=== PATIENT | male | born 1990 | race Two or more races ===

== ENCOUNTER 2017-08-07 14:46 | Emergency (ER) | payer OTHER ==
--- NOTE | 2017-08-07 15:16 | ER Document Report ---
HPI - HPI Patient complains to provider of: finger pain Onset: Other - wednesday Quality of pain: Achy, Throbbing Pain Level: 4 Context: Rush used for history and physical exam: 26-year-old male got a cut on the dorsal aspect of his left index finger at the nail bed on Wednesday. By it was swollen and tender. No fever. Associated Symptoms: None Exacerbated by: Movement Relieved by: Denies Similar symptoms previously: No Recently seen / treated by doctor: No - ROS ROS below otherwise negative: Yes Systems Reviewed and Negative: Yes All other systems reviewed and negative Past Medical History - General Information source: Patient - Social History Smoking Status: Never Smoker Frequency of alcohol use: None Drug Abuse: None Lives with: Spouse/Significant other Family History: Reviewed & Not Pertinent - Medical History Medical History: Negative Surgical Hx: Negative Vertical Provider Document - CONSTITUTIONAL Agree With Documented VS: Yes Exam Limitations: No Limitations - INFECTION CONTROL TRAVEL OUTSIDE OF THE [place] IN LAST 30 DAYS: No - HEENT HEENT: Normocephalic - NECK Neck: Supple - MUSCULOSKELETAL/EXTREMETIES Musculoskeletal/Extremeties: MAEW, FROM, Tender, Edema Notes: Right index finger with paronychia at the nailbed, no felon - NEURO Level of Consciousness: Awake Motor/Sensory: No Motor Deficit, No Sensory Deficit - DERM Integumentary: Warm, Dry Course - Re-evaluation Re-evalutation: 08/07/17 16:37 Rush was used for the history, physical exam, and discharge instructions. - Vital Signs Vital signs: Temp Pulse Resp BP Pulse Ox 98.3 F 77 18 126/96 H 98 08/07/17 14:56 08/07/17 14:56 08/07/17 14:56 08/07/17 14:56 08/07/17 14:56 Procedures - Incision and Drainage Left Finger 2nd digit Time completed: 16:39 Anesthetic type: Other - LET mL's of anesthetic: 2 I&D procedure: Betadine prep applied Incision Method: Incision made by scalpel - to nailbed to let the pus out Discharge - Discharge Clinical Impression: paronychia I and D Condition: Good Disposition: HOME, SELF-CARE Instructions: Acetaminophen, Cephalexin ([facility]), Elevation & Warmth ([facility]), Use of [id number]-Lgrmegn Ibuprofen ([facility]) Additional Instructions: Soak the finger in warm soapy water twice a day and replaced a dry dressing Elevate above your heart to decrease the pain Tylenol or Motrin for pain Return for increased swelling or pain. Finish antibiotics Prescriptions: Cephalexin Monohydrate [Keflex 500 mg Capsule] 500 mg PO QID #28 capsule
[2017-08-07] MEDS ORDERED: IBUPROFEN 800 MG TABLET PO ONE (15:43)
[2017-08-07] MEDS ORDERED: ACETAMINOPHEN 325 MG TABLET PO ONE (15:43)
[2017-08-07] MEDS ORDERED: LIDOCAINE 4%/TETRACAINE 0.5%/EPI 0.18% 5 ML TOPICAL SOLN TOP ONE (15:43)
[2017-08-07] MEDS ORDERED: CEPHALEXIN 500 MG CAPSULE PO ONE (15:43)
[2017-08-07] MEDS ORDERED: ONDANSETRON 4 MG TAB.RAPDIS PO ONE (15:43)
[2017-08-07 16:58] VITALS: BP 126/74
== END 2017-08-07 16:58 | disposition home or self-care (01) ==
LOC: EDBD → ER 14:46
DX: S61.311A Laceration without foreign body of left index finger with damage to nail, initial encounter (principal); L03.012 Cellulitis of left finger; W26.0XXA Contact with knife, initial encounter
CPT/HCPCS: 99283; 10060; S0119; J3490

== ENCOUNTER 2017-10-17 11:56 | Emergency (ER) | payer SELFPAY ==
[2017-10-17] MEDS ORDERED: VANCOMYCIN HCL INJ 1000 MG VIAL IV ONE (12:20)
--- NOTE | 2017-10-17 12:23 | ER Document Report ---
ED Medical Screen (RME) - General Chief Complaint: Knee Injury Stated Complaint: KNEE PAIN Time Seen by Provider: 10/17/17 12:18 Mode of Arrival: Wheelchair Information source: Patient Notes: This is a 27-year-old man or speaking man with no medical problems who presents to the emergency room with fever and chills for 2 days along with right knee redness and discomfort. The patient states he had a pimple just below the knee which he popped 2 days ago. Since that time, he feels a lot of pressure when he stands on that leg. He denies any cough, shortness of breath, abdominal pain. He denies any dysuria. On exam in the ER, he is afebrile and appears well. He does have erythema and warmth just below the patella and there is some firmness suggestive of possible abscess. He does not appear to have any significant pain with axial compression or with flexion and extension. His tetanus is up-to-date I have greeted and performed a rapid initial assessment of this patient. A comprehensive ED assessment and evaluation of the patient, analysis of test results and completion of medical decision making process we will be contacted by additional ED providers. TRAVEL OUTSIDE OF THE [place] IN LAST 30 DAYS: No - Related Data Allergies/Adverse Reactions: No Known Allergies Allergy (Verified 10/17/17 11:57) Past Medical History - Social History Frequency of alcohol use: None Drug Abuse: None Renal/ Medical History: Denies: Hx Peritoneal Dialysis Physical Exam - Vital signs Vitals: Temp Pulse Resp BP Pulse Ox 98.6 F 103 H 16 123/79 100 10/17/17 12:03 10/17/17 12:03 10/17/17 12:03 10/17/17 12:03 10/17/17 12:03 Course - Vital Signs Vital signs: Temp Pulse Resp BP Pulse Ox 98.6 F 103 H 16 123/79 100 10/17/17 12:03 10/17/17 12:03 10/17/17 12:03 10/17/17 12:03 10/17/17 12:03
[2017-10-17] MEDS ORDERED: NORMAL SALINE 1000 ML 1,000 ML IV ONE (12:32)
[2017-10-17] MEDS ORDERED: ONDANSETRON 4 MG TAB.RAPDIS PO ONE (12:32)
[2017-10-17 12:38] LABS: ABSOLUTE BASOPHILS # (AUTO) 0.1 10^3/uL (0.0-0.2); ABSOLUTE EOSINOPHILS # (AUTO) 0.4 10^3/uL (0.0-0.6); ABSOLUTE MONOCYTES (AUTO) 1.3 10^3/uL (0.1-1.4); BASOPHILS % (AUTO) 0.5 % (0-2); EOSINOPHILS % (AUTO) 3.1 % (0-6); HEMATOCRIT 45.4 % (37.9-51.0); HEMOGLOBIN 15.7 g/dL (13.5-17.0); LYMPHOCYTES % (AUTO) 14.2 % (13-45); MEAN CORPUSCULAR HEMOGLOBIN 30.4 pg (27.0-33.4); MEAN CORPUSCULAR HGB CONC 34.7 g/dL (32.0-36.0); MEAN CORPUSCULAR VOLUME 88 fl (80-97); MONOCYTES % (AUTO) 9.3 % (3-13); PLATELET COUNT 227 10^3/uL (150-450); RED BLOOD COUNT 5.18 10^6/uL (4.35-5.55); SEGMENTED NEUTROPHILS % (AUTO) 72.9 % (42-78); TOTAL CELLS COUNTED % (AUTO) 100 %; WHITE BLOOD COUNT 13.7 10^3/uL (4.0-10.5)
[2017-10-17 12:55] LABS: ALANINE AMINOTRANSFERASE 43 U/L (21-72); ALBUMIN 4.3 g/dL (3.5-5.0); ALKALINE PHOSPHATASE 90 U/L (38-126); ANION GAP 13 (5-19); ASPARTATE AMINO TRANSFERASE 32 U/L (17-59); BILIRUBIN,DIRECT 0.3 mg/dL (0.0-0.4); BILIRUBIN,TOTAL 1.1 mg/dL (0.2-1.3); BLOOD UREA NITROGEN 19 mg/dL (7-20); CALCIUM 10.2 mg/dL (8.4-10.2); CARBON DIOXIDE 28 mmol/L (22-30); CHLORIDE 103 mmol/L (98-107); GLUCOSE 87 mg/dL (75-110); POTASSIUM 4.5 mmol/L (3.6-5.0); SODIUM 143.7 mmol/L (137-145); TOTAL PROTEIN 7.6 g/dL (6.3-8.2)
--- NOTE | 2017-10-17 13:38 | RADIOLOGY REPORT (SQ) ---
EXAM DESCRIPTION: U/S EXTREMITY NONVASCULAR LTD COMPLETED DATE/TIME: 10/17/2017 1:11 pm REASON FOR STUDY: Cellulitis anterior lower knee, RO abscess COMPARISON: None. TECHNIQUE: Dynamic and static grayscale images acquired of the localized site of clinical concern an d recorded on PACS. Additional selected color Doppler and spectral images recorded. SITE OF CONCERN: Anterior knee soft tissues. LIMITATIONS: None. FINDINGS: SKIN AND SUBCUTANEOUS TISSUES: Superficial and deep subcutaneous generalized edema without well-defined focal fluid collection to suggest abscess. No visualized foreign body. DEEP SOFT TISSUES/MUSCLES: No masses. No fluid collections. No edema. VASCULAR: No increased or decreased vascularity. No occlusions. OTHER: No other significant finding. IMPRESSION: Superficial and deep subcutaneous edema consistent with cellulitis. No drainable absces s appreciated. TECHNICAL DOCUMENTATION: JOB ID: [id number] [employer]- All Rights Reserved Reading location - IP/workstation name: [email or web address]
[2017-10-17] MEDS ORDERED: CEFTRIAXONE INJ 1000 MG VIAL IV ONE (14:11)
[2017-10-17] MEDS ORDERED: PROMETHAZINE HCL 25 MG TABLET PO ONE (14:49)
[2017-10-17] MEDS ORDERED: OXYCODONE-ACETAMINOPHEN 5-325 MG TABLET PO ONE (14:49)
--- NOTE | 2017-10-17 15:58 | ER Document Report ---
ED Extremity Problem, Lower - General Chief Complaint: Knee Injury Stated Complaint: KNEE PAIN Time Seen by Provider: 10/17/17 12:18 Mode of Arrival: Wheelchair Notes: Patient is here for pain and swelling of the right lower leg, just below the knee anteriorly. He describes a small bump located in that region about 3-4 days ago. It has been progressively worsening in size and discomfort. They have been squeezing at this sore. It was originally white, but now has no color. Not aware of any fever. Patient is and speaks limited Macanese, but he is here with a female laboratory miller who speaks excellent Macanese and Macedonian. Patient has no other significant past medical history. Not on any regular prescription medications. TRAVEL OUTSIDE OF THE [place] IN LAST 30 DAYS: No - Related Data Allergies/Adverse Reactions: No Known Allergies Allergy (Verified 10/17/17 11:57) Past Medical History - General Information source: Patient - Social History Smoking Status: Never Smoker Frequency of alcohol use: None Drug Abuse: None Family History: Reviewed & Not Pertinent Patient has suicidal ideation: No Patient has homicidal ideation: No Review of Systems - Review of Systems Notes: REVIEW OF SYSTEMS: CONSTITUTIONAL : Denies fever. EENT: Denies eye, ear, nose or mouth or throat pain or other symptoms. CARDIOVASCULAR: Denies chest pain. RESPIRATORY: Denies cough, chest congestion, or shortness of breath. GASTROINTESTINAL: Denies abdominal pain or nausea, vomiting, or diarrhea. GENITOURINARY: Denies difficulty or painful urinating, urinary frequency, blood in urine. MUSCULOSKELETAL: Denies back or neck pain. Denies joint pain or swelling. SKIN: Denies rash. See HPI. NEUROLOGICAL: Denies LOC or altered mental status. Denies headache. Denies sensory loss or motor deficits. ALL OTHER SYSTEMS REVIEWED AND NEGATIVE. Physical Exam - Vital signs Vitals: Temp Pulse Resp BP Pulse Ox 98.6 F 107 H 16 123/79 100 10/17/17 12:01 10/17/17 12:01 10/17/17 12:01 10/17/17 12:01 10/17/17 12:01 Interpretation: Tachycardic - Minimal - Notes Notes: PHYSICAL EXAMINATION: GENERAL: Well-appearing, in no acute distress. Ambulates with a limp and with apparent pain. Afebrile. Very minimal increase in heart rate. HEAD: Atraumatic, normocephalic. NECK: Normal range of motion, supple. LUNGS: Breath sounds clear and equal bilaterally. HEART: Regular rate and rhythm without murmurs. ABDOMEN: Soft, nontender. No guarding or rebound. No masses. BACK: No tenderness throughout entire back. EXTREMITIES: Patient has swollen soft tissue around the upper anterior aspect of the right lower leg, just distal to the patella pretibial region. Central to this area painful swelling is a small denuded pustule which does not appear to be draining at this time. Palpation around this wound in the swollen area reveals generalized tenderness and quite firm to the touch. No fluctuance noted. The knee joint is easily bent into some degree of flexion as well as full extension without much discomfort. It is apparent that there is not any involvement in the joint itself and this is all in the soft tissues anterior to the knee joint. All other joints with normal range of motion without pain. NEUROLOGICAL: Normal speech, normal gait. Normal sensory, motor, and reflex exams. Awake, alert, and oriented x3. Cranial nerves normal. PSYCH: Normal mood, normal affect. SKIN: Warm, dry, no rashes. Course - Re-evaluation Re-evalutation: 10/17/17 22:13 Ultra Sound shows cellulitis, no abscess fluid collection. - Vital Signs Vital signs: Temp Pulse Resp BP Pulse Ox 97.6 F 97 16 121/78 98 10/17/17 16:28 10/17/17 16:28 10/17/17 16:28 10/17/17 16:28 10/17/17 16:28 - Laboratory Result Diagrams: 10/17/17 12:30 10/17/17 12:30 Laboratory results interpreted by me: 10/17/17 12:30 WBC 13.7 H Absolute Neutrophils 10.0 H Discharge - Discharge Clinical Impression: Cellulitis and abscess of right leg Condition: Stable Disposition: HOME, SELF-CARE Additional Instructions: CELLULITIS: You have an infection of your skin and underlying soft tissues called cellulitis. This is due to bacteria, which can enter through any break in the skin, or even through an irritated hair follicle. Untreated, cellulitis will usually worsen. Antibiotics are required. Usually, warm packs or warm soaks, and elevation of the infected area are recommended. You should start getting better within 24 to 36 hours. Most infections respond quickly to the right medication. Follow-up care is important, however, to check for abscess (boil) formation, unsuspected foreign body, or resistant infection. If you develop fever, chills, or if the area of infection is becoming rapidly more swollen or painful, call the doctor at once. MRSA CELLULITIS: You may have an infection of your skin and underlying soft tissues called cellulitis. This is due to bacteria, which can enter through any break in the skin, or even through an irritated hair follicle. Untreated, cellulitis will usually worsen and may form an abscess which requires draining. Although many bacterial organisms can cause cellulitis and abscess formations, the most likely bacteria is Methicillin-Resistant Staph Aureus, or MRSA for short. Antibiotics are required. Usually, warm packs or warm soaks, and elevation of the infected area are recommended. You should start getting better within 24 to 36 hours. Most infections respond quickly to the right medication. Follow-up care is important, however, to check for abscess (boil) formation, unsuspected foreign body, or resistant infection. If you develop fever, chills, or if the area of infection is becoming rapidly more swollen or painful, call the doctor at once. ANTIBIOTIC THERAPY: You have been given an antibiotic prescription. It's important that you take all the medication, unless instructed otherwise by your physician. Failure to complete the entire course can result in relapse of your condition. Common side effects of antibiotics include nausea, intestinal cramping, or diarrhea. Women may develop vaginal yeast infections, and babies can get yeast (thrush) in the mouth following the use of antibiotics. Contact your physician if you develop significant side effects from this medication. Allergy to this antibiotic can result in hives, wheezing, faintness, or itching. If symptoms of allergy occur, stop the medication and call the doctor. Cephalexin The antibiotic you've been prescribed is a member of the cephalosporin class. This type of antibiotic covers a wide variety of infections, including those of the skin, lungs, and urinary tract. It's useful for staph infections. This antibiotic is slightly similar to the penicillin family. In rare cases , a person who is allergic to penicillin will also be allergic to this medication. If you have had a severe allergic reaction to penicillin, and have not taken this antibiotic since that time, notify your doctor. Antibiotics which cover many germs ("broad spectrum" antibiotics) are more likely to cause diarrhea or "yeast" infections. Women prone to vaginal yeast problems may suffer an attack after taking this antibiotic. In infants, oral thrush (white spots "stuck" on the cheek) or yeast diaper rash may result. See your doctor if these problems occur. Call at once if you develop itching, hives , shortness of breath, or lightheadedness. TRIMETHOPRIM-SULFA: You have been given a prescription for trimethoprim-sulfa (TMS, Septra, Bactrim). This is a combination antibiotic of the sulfa class, often used for urinary tract infections, middle ear infections, bronchitis, shigella intestinal infection, and Pneumocystis pneumonia. TMS is usually well-tolerated. Occasional side effects include nausea and decreased appetite. Septra is not recommended for infants less than two months of age. Do not take this medication if you have experienced severe side effects or allergy to sulfa medicine. You should stop this medicine at once and contact your physician if you develop any rash, joint pain, shortness of breath, bruising, or jaundice ( yellow color in the skin), or if you develop any other new or unusual symptoms. ORAL NARCOTIC MEDICATION: You have been given a prescription for pain control. This medication is a narcotic. It's best taken with food, as nausea can result if taken on an empty stomach. Don't operate machinery or drive within six hours of taking this medication. Do not combine this medicine with alcohol, or with any medication which can cause sedation (such as cold tablets or sleeping pills) unless you get permission from the physician. Narcotics tend to cause constipation. If possible, drink plenty of fluids and eat a diet high in fiber and fruits. FOLLOW-UP CARE: If you have been referred to a physician for follow-up care, call the physician s office for an appointment as you were instructed or within the next two days. If you experience worsening or a significant change in your symptoms, notify the physician immediately or return to the Emergency Department at any time for re-evaluation. Avoid being exposed to sunlight because some medications will cause a rash when exposed to the sun. Wear long sleeve shirts and long pants while taking her medications. If your leg is worse tomorrow, return for us to reevaluate. Prescriptions: Cephalexin Monohydrate [Keflex 500 mg Capsule] 500 mg PO QID 7 Days capsule Oxycodone HCl/Acetaminophen [Percocet 5-325 mg Tablet] 1 - 2 tab PO Q4H PRN #15 tablet PRN Reason: Sulfamethoxazole/Trimethoprim [Bactrim Ds Tablet] 1 each PO BID #15 tablet Forms: Return to Work
[2017-10-17 16:28] VITALS: BP 121/78
== END 2017-10-17 16:28 | disposition home or self-care (01) ==
LOC: ER 11:56
DX: L03.115 Cellulitis of right lower limb (principal); L02.415 Cutaneous abscess of right lower limb
CPT/HCPCS: 99284; 96365; 96366; 96367; 36415; 87040; 85025; 80053; 83605; 76882; S0119; J0696; J7030; J3370

== ENCOUNTER 2017-10-19 11:14 | Inpatient (IN) | payer SELFPAY ==
[2017-10-19] MEDS ORDERED: NORMAL SALINE 1000 ML 2,000 ML IV ONE (12:08)
[2017-10-19] MEDS ORDERED: HYDROMORPHONE HCL INJ/PF 2 MG/ML AMPULE IV ONE (12:09)
--- NOTE | 2017-10-19 12:10 | ER Document Report ---
ED Extremity Problem, Lower - General Chief Complaint: Leg Pain Stated Complaint: RIGHT KNEE PAIN Time Seen by Provider: 10/19/17 11:44 Mode of Arrival: Ambulatory Information source: Patient Notes: Patient is a 27-year-old male who does not speak Gibraltarian who presents to the ER today for worsening right knee redness, pain, swelling. Patient was seen here 2 days ago and diagnosed with cellulitis directly inferior to the right knee. Patient was placed on Bactrim and Keflex, states that he has been taking that but that the redness, swelling and pain worsened. Patient states that it is harder to bend the right knee because of the pain. He admits to fevers at home. He has not taken his temperature. TRAVEL OUTSIDE OF THE [place] IN LAST 30 DAYS: No - Related Data Allergies/Adverse Reactions: No Known Allergies Allergy (Verified 10/17/17 11:57) Past Medical History - General Information source: Patient - Social History Smoking Status: Never Smoker Family History: Reviewed & Not Pertinent Renal/ Medical History: Denies: Hx Peritoneal Dialysis Review of Systems - Review of Systems Constitutional: See HPI EENT: No symptoms reported Cardiovascular: No symptoms reported Respiratory: No symptoms reported Gastrointestinal: No symptoms reported Genitourinary: No symptoms reported Male Genitourinary: No symptoms reported Musculoskeletal: See HPI Skin: See HPI Hematologic/Lymphatic: No symptoms reported Neurological/Psychological: No symptoms reported Physical Exam - Vital signs Vitals: Temp Pulse BP Pulse Ox 99.3 F 95 123/63 98 10/19/17 12:31 10/19/17 12:31 10/19/17 12:31 10/19/17 12:31 - Notes Notes: PHYSICAL EXAMINATION: GENERAL: Well-appearing and in no acute distress. HEAD: Atraumatic, normocephalic. EYES: Pupils equal round and reactive to light, extraocular movements intact, sclera anicteric, conjunctiva are normal. NECK: Normal range of motion, supple without lymphadenopathy LUNGS: CTAB and equal. No wheezes rales or rhonchi. HEART: Regular rate and rhythm without murmurs EXTREMITIES: Limited active range of motion of the right knee with bending, good passive range of motion of the right knee but with pain, good distal pulses , no pitting edema. No cyanosis. NEUROLOGICAL: Cranial nerves grossly intact. Normal sensory/motor exams. PSYCH: Normal mood, normal affect. SKIN: Warm, Dry, normal turgor, large amount of erythema to the anterior, medial and lateral surface of the right lower extremity directly inferior to the patella, hot, tender, area of induration overlying the center with a pustule , no active drainage Course - Re-evaluation Re-evalutation: 10/19/17 13:33 Patient has a white blood cell count of 14.2, is afebrile today, lactic acid is normal, blood cultures pending, however blood cultures from 2 days ago showed no growth. Dr. Banuelos, orthopedic on-call knows about patient and states that he will be here, but it may take a few hours as he is in the operating room at this time. 10/19/17 16:24 inferior to right patella had induration that I drained, copious amount of pus was released, clindamycin started, Dr. Banuelos to consult, Dr. Agosto accepts admission at this time for IV abx. wound culture pending. 10/19/17 18:06 Dr. Banuelos, orthopedic surgeon just evaluated patient along with myself. Agrees with admission and IV antibiotic choice. - Vital Signs Vital signs: Temp Pulse Resp BP Pulse Ox 99.3 F 97 17 123/63 98 10/19/17 12:31 10/19/17 17:22 10/19/17 17:22 10/19/17 12:31 10/19/17 17:22 - Laboratory Result Diagrams: 10/19/17 12:16 10/19/17 12:16 Laboratory results interpreted by me: 10/19/17 10/19/17 10/19/17 12:15 12:16 12:16 WBC 14.2 H Absolute Neutrophils 9.6 H ESR Alkaline Phosphatase 142 H C-Reactive Protein Urine Blood LARGE H Urine Urobilinogen 4.0 H 10/19/17 10/19/17 12:16 12:16 WBC Absolute Neutrophils ESR 64 H Alkaline Phosphatase C-Reactive Protein 218.4 H Urine Blood Urine Urobilinogen Procedures - Incision and Drainage Right Lower Leg Time completed: 15:00 Type: Simple Anesthetic type: 1% Lidocaine mL's of anesthetic: 7 Blade size: 11 I&D procedure: Betadine prep applied Incision Method: Incision made by scalpel Amount/type of drainage: copious pus Discharge - Discharge Clinical Impression: Cellulitis and abscess of right leg Condition: Stable Disposition: ADMITTED INPATIENT Admitting Provider: Julio agosto Unit Admitted: Medical Floor
[2017-10-19] MEDS ORDERED: FENTANYL CITRATE INJ/PF 100 MCG/2 ML AMPUL IV ONE ×2 (12:27→15:10)
[2017-10-19 12:43] LABS: ABSOLUTE EOSINOPHILS # (AUTO) 0.4 10^3/uL (0.0-0.6); ABSOLUTE MONOCYTES (AUTO) 1.2 10^3/uL (0.1-1.4); ABSOLUTE NEUT (AUTO) 9.6 10^3/uL (1.7-8.2); BASOPHILS % (AUTO) 0.3 % (0-2); EOSINOPHILS % (AUTO) 2.7 % (0-6); HEMATOCRIT 41.3 % (37.9-51.0); HEMOGLOBIN 14.3 g/dL (13.5-17.0); MEAN CORPUSCULAR HGB CONC 34.6 g/dL (32.0-36.0); MEAN CORPUSCULAR VOLUME 87 fl (80-97); MONOCYTES % (AUTO) 8.7 % (3-13); PLATELET COUNT 287 10^3/uL (150-450); RED BLOOD COUNT 4.76 10^6/uL (4.35-5.55); RED CELL DISTRIBUTION WIDTH 13.2 % (11.5-14.0); SEGMENTED NEUTROPHILS % (AUTO) 67.3 % (42-78); TOTAL CELLS COUNTED % (AUTO) 100 %; WHITE BLOOD COUNT 14.2 10^3/uL (4.0-10.5)
[2017-10-19 12:47] LABS: APPEARANCE,URINE CLEAR; BILIRUBIN,URINE NEGATIVE (NEGATIVE); COLOR,URINE YELLOW; GLUCOSE, URINE NEGATIVE (NEGATIVE); KETONES,URINE NEGATIVE (NEGATIVE); LEUKOCYTE ESTERASE,URINE NEGATIVE (NEGATIVE); NITRITE,URINE NEGATIVE (NEGATIVE); PROTEIN,URINE NEGATIVE (NEGATIVE); URINE SPECIFIC GRAVITY 1.006
[2017-10-19 13:06] LABS: ALANINE AMINOTRANSFERASE 51 U/L (21-72); ALBUMIN 4.2 g/dL (3.5-5.0); ALKALINE PHOSPHATASE 142 U/L (38-126); ANION GAP 13 (5-19); ASPARTATE AMINO TRANSFERASE 45 U/L (17-59); BILIRUBIN,DIRECT 0.4 mg/dL (0.0-0.4); BILIRUBIN,TOTAL 0.8 mg/dL (0.2-1.3); BLOOD UREA NITROGEN 12 mg/dL (7-20); CALCIUM 9.8 mg/dL (8.4-10.2); CARBON DIOXIDE 24 mmol/L (22-30); CHLORIDE 103 mmol/L (98-107); GLUCOSE 81 mg/dL (75-110); POTASSIUM 4.3 mmol/L (3.6-5.0); SODIUM 140.4 mmol/L (137-145); TOTAL PROTEIN 7.4 g/dL (6.3-8.2)
--- NOTE | 2017-10-19 13:15 | RADIOLOGY REPORT (SQ) ---
EXAM DESCRIPTION: CT RT LOWER EXTREMITY WITH COMPLETED DATE/TIME: 10/19/2017 12:56 pm REASON FOR STUDY: septic knee COMPARISON: None. TECHNIQUE: CT scan of the right knee performed with IV contrast. Patient was injected with 65 mL of IV Isovue 370. Patient's creatinine today is 0.92. Images reviewed with soft tissue and bone gertrudis maldonado. Reconstructed coronal and sagittal MPR images reviewed. All images stored on PACS. All CT scanners at this facility use dose modulation, iterative reconstruction, and/or weight based d osing when appropriate to reduce radiation dose to as low as reasonably achievable (ALARA). [facility]: Dose Right [facility]: CareDose [facility]: Dose Right [facility]: Teradose 4D [facility]: LabNow RADIATION DOSE: CT Rad equipment meets quality standard of care and radiation dose reduction techniq ues were employed. CTDIvol: 4.1 mGy. DLP: 183 mGy-cm. mGy. LIMITATIONS: None. FINDINGS: Normal bone density. No fracture or malalignment. Joint spaces are well maintained. There is superficial cellulitis from the mid thigh to the mid calf lateral aspect, with skin thickeni ng and subcutaneous edema. A 3.4 x 1.3 x 2 cm fluid collection is present in the prepatellar bursa, best shown on coronal image 47, sagittal image 30, and axial images 92-104. There is trace fluid deep to the medial aspect of the patellar tendon, along Hoffa's fat pad. This fluid collection measures 2 x 1 cm in size, best shown on sagittal image 36 and axial image 93. There is trace fluid in the suprapatellar recess. No soft tissue gas. No radiopaque foreign body. Normal contrast enhancement of the popliteal artery and vein. IMPRESSION: Superficial cellulitis throughout the lateral aspect of the left knee soft tissues. Fluid in the prepatellar bursa with surrounding inflammatory change in the adjacent fat Trace fluid in the Hoffa's fat pad region Trace suprapatellar knee joint space fluid. TECHNICAL DOCUMENTATION: JOB ID: [id number] Quality ID # [id number]: Final reports with documentation of one or more dose reduction techniques (e.g., Au tomated exposure control, adjustment of the mA and/or kV according to patient size, use of iterative reconstruction technique) 2010 [employer]- All Rights Reserved Reading location - IP/workstation name: [email or web address]
[2017-10-19] MEDS ORDERED: LIDOCAINE 1% INJ-PF (10 MG/ML) 30 ML SDV INJ ONE (13:52)
[2017-10-19] MEDS ORDERED: IPRATROPIUM/ALBUTEROL 0.5-2.5 MG/3 ML AMPUL NEB PRN (16:28)
[2017-10-19] MEDS ORDERED: ONDANSETRON 4 MG TAB.RAPDIS PO PRN (16:28)
[2017-10-19] MEDS ORDERED: ONDANSETRON HCL INJ/PF 4 MG/2 ML SDV IV PRN (16:28)
--- NOTE | 2017-10-19 17:25 | PDOC H&P ---
History of Present Illness Admission Date/PCP: 10/19/17 The patient does not have a primary care physician. Patient complains of: L leg cellulitis worsening despite oral outpatient antibiotics History of Present Illness: RICKI DURAN is a 27 year old Belarusian-speaking gentleman with no significant past medical history who presented to the Emergency department 2 days ago with cellulitis overlying his right knee. He was discharged with some oxycodone Keflex and Bactrim. He reports that it started with a small pustule that he squeezed and then the infection spread. He admits to some fevers nausea. He has been constipated for the past 3 days. He returned back to the emergency room due to worsening of pain swelling and redness over his right knee with difficulty ambulating. Incision and drainage of pus was done in the emergency room. CAT scan of the lower extremity shows superficial cellulitis of the lateral aspect of the knee and the soft tissues with fluid in the prepatellar bursa with surrounding inflammatory change in the adjacent fat. Trace suprapatellar knee joint space fluid was also seen. A consultation was requested for orthopedics. Past Medical History Medical History: None Social History Information Source: Patient Smoking Status: Never Smoker Frequency of Alcohol Use: None Hx Recreational Drug Use: No - Advance Directive Resuscitation Status: Full Code Family History Family History: None Parental Family History Reviewed: Yes Children Family History Reviewed: Yes Sibling(s) Family History Reviewed.: Yes Medication/Allergy Home Medications: Cephalexin Monohydrate [Keflex 500 mg Capsule] 500 mg PO QID 7 Days capsule 02/24 Oxycodone HCl/Acetaminophen [Percocet 5-325 mg Tablet] 1 - 2 tab PO Q4H PRN #15 tablet 10/17/17 Sulfamethoxazole/Trimethoprim [Bactrim Ds Tablet] 1 each PO BID #15 tablet 10/17 Allergies/Adverse Reactions: No Known Allergies Allergy (Verified 10/17/17 11:57) Review of Systems Constitutional: PRESENT: fever(s) Ears: ABSENT: hearing changes Nose, Mouth, and Throat: ABSENT: mouth pain Cardiovascular: ABSENT: chest pain, edema Gastrointestinal: PRESENT: constipation. ABSENT: abdominal pain, heartburn Genitourinary: ABSENT: dysuria Musculoskeletal: PRESENT: joint swelling Integumentary: PRESENT: rash Neurological: ABSENT: syncope Psychiatric: ABSENT: hallucinations Endocrine: ABSENT: heat intolerance Hematologic/Lymphatic: ABSENT: easy bleeding Allergic/Immunologic: ABSENT: seasonal rhinorrhea Physical Exam Vital Signs: Temp Pulse Resp BP Pulse Ox 99.3 F 95 123/63 98 10/19/17 12:31 10/19/17 12:31 10/19/17 12:31 10/19/17 12:31 General appearance: PRESENT: no acute distress, well-developed, well-nourished Head exam: PRESENT: normocephalic Eye exam: PRESENT: PERRLA. ABSENT: scleral icterus Ear exam: PRESENT: normal external ear exam Mouth exam: PRESENT: moist Respiratory exam: PRESENT: symmetrical, unlabored. ABSENT: wheezes Cardiovascular exam: PRESENT: RRR GI/Abdominal exam: PRESENT: normal bowel sounds, soft. ABSENT: tenderness Rectal exam: PRESENT: deferred Gentrourinary exam: ABSENT: indwelling catheter Extremities exam: PRESENT: other - erythema over the R knee, with increased circumference of the R leg Musculoskeletal exam: PRESENT: other - as above Neurological exam: PRESENT: alert, awake, oriented to person, oriented to place , oriented to time, oriented to situation Psychiatric exam: PRESENT: appropriate affect Skin exam: PRESENT: other - as above Results Laboratory Results: 10/19/17 12:16 10/19/17 12:16 10/19/17 10/19/17 10/19/17 12:15 12:16 12:16 WBC 14.2 H RBC 4.76 Hgb 14.3 Hct 41.3 MCV 87 MCH 30.0 MCHC 34.6 RDW 13.2 Plt Count 287 Seg Neutrophils % 67.3 Lymphocytes % 21.0 Monocytes % 8.7 Eosinophils % 2.7 Basophils % 0.3 Absolute Neutrophils 9.6 H Absolute Lymphocytes 3.0 Absolute Monocytes 1.2 Absolute Eosinophils 0.4 Absolute Basophils 0.0 Sodium 140.4 Potassium 4.3 Chloride 103 Carbon Dioxide 24 Anion Gap 13 BUN 12 Creatinine 1.12 Est GFR ( Amer) > 60 Est GFR (Non-Af Amer) > 60 Glucose 81 Lactic Acid Calcium 9.8 Total Bilirubin 0.8 AST 45 ALT 51 Alkaline Phosphatase 142 H C-Reactive Protein Total Protein 7.4 Albumin 4.2 Urine Color YELLOW Urine Appearance CLEAR Urine pH 6.0 Ur Specific Grandy 1.006 Urine Protein NEGATIVE Urine Glucose (UA) NEGATIVE Urine Ketones NEGATIVE Urine Blood LARGE H Urine Nitrite NEGATIVE Ur Leukocyte Esterase NEGATIVE Urine WBC (Auto) 1 10/19/17 10/19/17 12:16 12:16 WBC RBC Hgb Hct MCV MCH MCHC RDW Plt Count Seg Neutrophils % Lymphocytes % Monocytes % Eosinophils % Basophils % Absolute Neutrophils Absolute Lymphocytes Absolute Monocytes Absolute Eosinophils Absolute Basophils Sodium Potassium Chloride Carbon Dioxide Anion Gap BUN Creatinine Est GFR ( Amer) Est GFR (Non-Af Amer) Glucose Lactic Acid 1.8 Calcium Total Bilirubin AST ALT Alkaline Phosphatase C-Reactive Protein 218.4 H Total Protein Albumin Urine Color Urine Appearance Urine pH Ur Specific Grandy Urine Protein Urine Glucose (UA) Urine Ketones Urine Blood Urine Nitrite Ur Leukocyte Esterase Urine WBC (Auto) Impressions: Lower Extremity CT 10/19/17 12:07 IMPRESSION: Superficial cellulitis throughout the lateral aspect of the left knee soft tissues. Fluid in the prepatellar bursa with surrounding inflammatory change in the adjacent fat Trace fluid in the Hoffa's fat pad region Trace suprapatellar knee joint space fluid. Assessment & Plan - Diagnosis (1) Cellulitis and abscess of right leg Is this a current diagnosis for this admission?: Yes Plan: He has been started on IV Clindamycin which we shall continue. Follow up on would cultures. Check venous dopplers to r/o DVT. Orthopedic consult requested to evaluate for possible R knee joint involvement (2) Constipation Qualifiers: Constipation type: unspecified constipation type Qualified Code(s): K59.00 - Constipation, unspecified Is this a current diagnosis for this admission?: Yes Plan: Laxatives - Time Time Spent: 50 to 70 Minutes - Inpatient Certification Medical Necessity: Failure to Improve With Outpatient Therapy, Need Close Monitoring Due to Risk of Patient Decompensation, Need for IV Antibiotics
[2017-10-19] MEDS ORDERED: ENOXAPARIN SODIUM INJ 40 MG/0.4 ML DISP.SYRIN SUBCUT ONE (17:30)
[2017-10-19] MEDS: CLINDAMYCIN 600 MG/D5W RTU 600 MG/50 ML RTUPB IV SCH (18:18)
[2017-10-19] MEDS: OXYCODONE-ACETAMINOPHEN 5-325 MG TABLET PO PRN (18:20)
[2017-10-19] MEDS: LACTOBACILLUS ACIDOPHILUS 250 MG TAB PO SCH (18:20)
[2017-10-19] MEDS ORDERED: BISACODYL 5 MG TABEC PO ONE (18:30)
--- NOTE | 2017-10-19 19:04 | PDOC CONSULTATION ---
History of Present Illness Admission Date/PCP: 10/19/17 16:46 Patient complains of: Right knee redness and swelling History of Present Illness: RICKI DURAN is a 27 year old male who presented to the emergency room 2 days ago with right knee pain and swelling. He was started on Bactrim and Keflex which he has been taking as recommended but states the pain has not improved. Initially started a few days ago with a small pustule which he popped since then the redness and swelling have worsened. His difficulty weightbearing or moving his right knee secondary to the pain. While in the emergency room patient underwent bedside irrigation and debridement since then his pain has notably improved and he has better range of motion. He denies fever chills or sweats. Does complain of some constipation today. Above history was obtained via foreign language interpreter Social History Smoking Status: Never Smoker Frequency of Alcohol Use: None Hx Recreational Drug Use: No - Advance Directive Resuscitation Status: Full Code Family History Family History: Reviewed & Not Pertinent Parental Family History Reviewed: No Children Family History Reviewed: No Sibling(s) Family History Reviewed.: No Medication/Allergy Home Medications: Cephalexin Monohydrate [Keflex 500 mg Capsule] 500 mg PO QID 7 Days capsule 02/24 Oxycodone HCl/Acetaminophen [Percocet 5-325 mg Tablet] 1 - 2 tab PO Q4H PRN #15 tablet 10/17/17 Sulfamethoxazole/Trimethoprim [Bactrim Ds Tablet] 1 each PO BID #15 tablet 10/17 Allergies/Adverse Reactions: No Known Allergies Allergy (Verified 10/17/17 11:57) Review of Systems Constitutional: ABSENT: chills, fever(s), headache(s), weight gain, weight loss Eyes: ABSENT: visual disturbances Ears: ABSENT: hearing changes Cardiovascular: ABSENT: chest pain, dyspnea on exertion, edema, orthropnea, palpitations Respiratory: ABSENT: cough, hemoptysis Gastrointestinal: PRESENT: constipation. ABSENT: abdominal pain, diarrhea, hematemesis, hematochezia, nausea, vomiting Genitourinary: ABSENT: dysuria, hematuria Musculoskeletal: PRESENT: as per HPI Integumentary: ABSENT: rash, wounds Neurological: ABSENT: abnormal gait, abnormal speech, confusion, dizziness, focal weakness, syncope Psychiatric: ABSENT: anxiety, depression, homidical ideation, suicidal ideation Endocrine: ABSENT: cold intolerance, heat intolerance, menstrual abnormalities, polydipsia, polyuria Hematologic/Lymphatic: ABSENT: easy bleeding, easy bruising, lymphadenopathy Physical Exam Vital Signs: Temp Pulse Resp BP Pulse Ox 99.3 F 97 17 123/63 98 10/19/17 12:31 10/19/17 17:22 10/19/17 17:22 10/19/17 12:31 10/19/17 17:22 Results Impressions: Lower Extremity CT 10/19/17 12:07 IMPRESSION: Superficial cellulitis throughout the lateral aspect of the left knee soft tissues. Fluid in the prepatellar bursa with surrounding inflammatory change in the adjacent fat Trace fluid in the Hoffa's fat pad region Trace suprapatellar knee joint space fluid. Status: Image reviewed by me - I have reviewed patient's radiographs and CT scan which demonstrated fluid collection within the prepatellar bursa consistent with prepatellar bursitis. No significant intra-articular effusion noted. Assessment & Plan - Diagnosis (1) Bursitis, prepatellar, right Is this a current diagnosis for this admission?: Yes Plan: On examination patient has findings of prepatellar bursitis. I have reviewed CT scan and radiographs which demonstrate the above finding. On examination there is no sign or symptoms to suggest septic arthritis however he does remain a possibility. She underwent successful bedside irrigation and debridement with packing I have recommended continuing IV antibiotics if patient's there is clinical improvement will likely avoid operative intervention however if his symptoms do not improve he may require formal irrigation debridement in the operating room. Would recommend packing removal on 10/20/17
[2017-10-20] MEDS: CLINDAMYCIN 600 MG/D5W RTU 600 MG/50 ML RTUPB IV SCH ×3 (06:17→22:32)
[2017-10-20] MEDS: OXYCODONE-ACETAMINOPHEN 5-325 MG TABLET PO PRN (06:18)
[2017-10-20 06:24] LABS: ABSOLUTE BASOPHILS # (AUTO) 0.1 10^3/uL (0.0-0.2); ABSOLUTE EOSINOPHILS # (AUTO) 0.4 10^3/uL (0.0-0.6); ABSOLUTE LYMPHOCYTES (AUTO) 1.9 10^3/uL (0.5-4.7); ABSOLUTE MONOCYTES (AUTO) 0.7 10^3/uL (0.1-1.4); BASOPHILS % (AUTO) 0.6 % (0-2); EOSINOPHILS % (AUTO) 4.4 % (0-6); HEMATOCRIT 38.3 % (37.9-51.0); HEMOGLOBIN 13.2 g/dL (13.5-17.0); LYMPHOCYTES % (AUTO) 20.9 % (13-45); MEAN CORPUSCULAR HEMOGLOBIN 30.2 pg (27.0-33.4); MEAN CORPUSCULAR HGB CONC 34.4 g/dL (32.0-36.0); MEAN CORPUSCULAR VOLUME 88 fl (80-97); MONOCYTES % (AUTO) 8.1 % (3-13); PLATELET COUNT 224 10^3/uL (150-450); RED BLOOD COUNT 4.36 10^6/uL (4.35-5.55); RED CELL DISTRIBUTION WIDTH 13.3 % (11.5-14.0); TOTAL CELLS COUNTED % (AUTO) 100 %; WHITE BLOOD COUNT 9.1 10^3/uL (4.0-10.5)
[2017-10-20 07:00] LABS: ALANINE AMINOTRANSFERASE 55 U/L (21-72); ALBUMIN 3.3 g/dL (3.5-5.0); ALKALINE PHOSPHATASE 107 U/L (38-126); ANION GAP 11 (5-19); ASPARTATE AMINO TRANSFERASE 38 U/L (17-59); BILIRUBIN,DIRECT 0.4 mg/dL (0.0-0.4); BILIRUBIN,TOTAL 0.6 mg/dL (0.2-1.3); BLOOD UREA NITROGEN 14 mg/dL (7-20); CALCIUM 9.4 mg/dL (8.4-10.2); CARBON DIOXIDE 27 mmol/L (22-30); CHLORIDE 106 mmol/L (98-107); GLUCOSE 91 mg/dL (75-110); PHOSPHORUS 3.2 mg/dL (2.5-4.5); POTASSIUM 4.6 mmol/L (3.6-5.0); SODIUM 143.7 mmol/L (137-145); TOTAL PROTEIN 6.3 g/dL (6.3-8.2)
--- NOTE | 2017-10-20 07:02 | PDOC PROGRESS REPORT ---
Subjective Progress Note for:: 10/20/17 Subjective:: Patient notes pain has improved after bedside irrigation by the emergency room. Denies fever or chills. Reason For Visit: L LEG CELLULITIS WORSENING DESPITE ORAL OUTPATIENT Physical Exam Vital Signs: Temp Pulse Resp BP Pulse Ox 98.7 F 77 18 108/62 100 10/20/17 05:11 10/20/17 05:11 10/20/17 05:11 10/20/17 05:11 10/20/17 05:11 Intake & Output 10/18/17 10/19/17 10/20/17 06:59 06:59 06:59 Intake Total 100 Output Total 450 Balance -350 Weight 76.3 kg Musculoskeletal exam: PRESENT: other - Right knee: Mild erythema anteriorly. No active drainage. No streaking erythema proximally or distally. Calf soft and compressible with mild swelling. No pain with passive range of motion. Intact plantar flexion/dorsiflexion. No sensory deficits. Results Laboratory Results: 10/20/17 05:34 10/20/17 05:34 WBC 9.1 RBC 4.36 Hgb 13.2 L Hct 38.3 MCV 88 MCH 30.2 MCHC 34.4 RDW 13.3 Plt Count 224 Seg Neutrophils % 66.0 Lymphocytes % 20.9 Monocytes % 8.1 Eosinophils % 4.4 Basophils % 0.6 Absolute Neutrophils 6.0 Absolute Lymphocytes 1.9 Absolute Monocytes 0.7 Absolute Eosinophils 0.4 Absolute Basophils 0.1 Impressions: Lower Extremity CT 10/19/17 12:07 IMPRESSION: Superficial cellulitis throughout the lateral aspect of the left knee soft tissues. Fluid in the prepatellar bursa with surrounding inflammatory change in the adjacent fat Trace fluid in the Hoffa's fat pad region Trace suprapatellar knee joint space fluid. Assessment & Plan - Diagnosis (1) Bursitis, prepatellar, right Is this a current diagnosis for this admission?: Yes Plan: On examination patient has findings of prepatellar bursitis. Patient underwent successful bedside irrigation and debridement with packing I have recommended continuing IV antibiotics if patient's there is clinical improvement will likely avoid operative intervention however if his symptoms do not improve he may require formal irrigation debridement in the operating room. Would recommend packing removal on 10/20/17
[2017-10-20] MEDS: ENOXAPARIN SODIUM INJ 40 MG/0.4 ML DISP.SYRIN SUBCUT SCH (10:54)
[2017-10-20] MEDS: DOCUSATE SODIUM 100 MG CAPSULE PO SCH (10:57)
--- NOTE | 2017-10-20 12:12 | PDOC PROGRESS REPORT ---
Subjective Progress Note for:: 10/20/17 Subjective:: 27-year-old Faroese-speaking gentleman who was admitted yesterday for failure of improvement of his right leg cellulitis with p.o. antibiotics. He underwent incision and drainage in the emergency room and was started on IV antibiotics. He also has prepatellar bursitis and was evaluated by orthopedic surgery. Reason For Visit: L LEG CELLULITIS WORSENING DESPITE ORAL OUTPATIENT Physical Exam Vital Signs: Temp Pulse Resp BP Pulse Ox 98.3 F 70 16 126/78 H 100 10/20/17 08:02 10/20/17 08:02 10/20/17 08:02 10/20/17 08:02 10/20/17 08:02 Intake & Output 10/19/17 10/20/17 10/21/17 06:59 06:59 06:59 Intake Total 150 Output Total 450 Balance -300 Weight 76.3 kg General appearance: PRESENT: no acute distress Head exam: PRESENT: normocephalic Eye exam: ABSENT: scleral icterus Ear exam: PRESENT: normal external ear exam Mouth exam: PRESENT: moist Respiratory exam: PRESENT: symmetrical, unlabored Cardiovascular exam: PRESENT: RRR GI/Abdominal exam: PRESENT: normal bowel sounds, soft. ABSENT: tenderness Rectal exam: PRESENT: deferred Gentrourinary exam: ABSENT: indwelling catheter Extremities exam: PRESENT: pedal edema, other - Erythema over the right knee improved.. ABSENT: calf tenderness Neurological exam: PRESENT: alert, awake, oriented to person, oriented to place , oriented to time, oriented to situation Psychiatric exam: PRESENT: appropriate affect Results Laboratory Results: 10/20/17 05:34 10/20/17 05:34 10/20/17 10/20/17 10/20/17 05:34 05:34 05:34 WBC 9.1 RBC 4.36 Hgb 13.2 L Hct 38.3 MCV 88 MCH 30.2 MCHC 34.4 RDW 13.3 Plt Count 224 Seg Neutrophils % 66.0 Lymphocytes % 20.9 Monocytes % 8.1 Eosinophils % 4.4 Basophils % 0.6 Absolute Neutrophils 6.0 Absolute Lymphocytes 1.9 Absolute Monocytes 0.7 Absolute Eosinophils 0.4 Absolute Basophils 0.1 Sodium 143.7 Potassium 4.6 Chloride 106 Carbon Dioxide 27 Anion Gap 11 BUN 14 Creatinine 1.01 Est GFR ( Amer) > 60 Est GFR (Non-Af Amer) > 60 Glucose 91 Calcium 9.4 Phosphorus 3.2 Magnesium 2.4 H Total Bilirubin 0.6 AST 38 ALT 55 Alkaline Phosphatase 107 Total Protein 6.3 Albumin 3.3 L TSH 1.94 Impressions: Lower Extremity CT 10/19/17 12:07 IMPRESSION: Superficial cellulitis throughout the lateral aspect of the left knee soft tissues. Fluid in the prepatellar bursa with surrounding inflammatory change in the adjacent fat Trace fluid in the Hoffa's fat pad region Trace suprapatellar knee joint space fluid. Assessment & Plan - Diagnosis (1) Cellulitis and abscess of right leg Is this a current diagnosis for this admission?: Yes Plan: Status post irrigation and drainage. Day 2 IV Clindamycin. Follow up on would cultures. Check venous dopplers to r/o DVT. (2) Constipation Qualifiers: Constipation type: unspecified constipation type Qualified Code(s): K59.00 - Constipation, unspecified Is this a current diagnosis for this admission?: Yes Plan: Laxatives (3) Bursitis, prepatellar, right Is this a current diagnosis for this admission?: Yes Plan: Was evaluated by Dr. berg from orthopedic surgery. Packing removal recommended. Plan is for formal irrigation and debridement in the OR if no improvement. - Time Time Spent with patient: 25-34 minutes
--- NOTE | 2017-10-20 13:10 | XCELERA REPORT ---
[address] [address] Lower Extremity Venous Evaluation Name: RICKI DURAN Age: 27 yrs Gender: Male : 1990 Patient Status: Inpatient Patient Location: [address] [place], [place] [address] Study Date: 10/20/2017 09:04 AM Procedure: Color flow and duplex imaging of the veins of the right lower extremity as well as the left Common Femoral vein. Reason For Study: R leg swelling Ordering Physician: FELICITA AVILA Performed By: Reena Montesinos Right Sided Venous Evaluation Normal vessel filling wall to wall, compression and augmentation as well as Colour flow down to the infrageniculate veins. Left Sided Venous Evaluation The left common femoral vein is fully compressible. Spontaneous and phasic flow is present in the left common femoral vein. Interpretation Summary No duplex evidence of DVT or obstruction in the right lower extremity nor in the left Common Femoral vein. : FELICITA AVILA [place]
[2017-10-20] MEDS: LACTOBACILLUS ACIDOPHILUS 250 MG TAB PO SCH (18:50)
[2017-10-21] MEDS: CLINDAMYCIN 600 MG/D5W RTU 600 MG/50 ML RTUPB IV SCH (06:10)
[2017-10-21] MEDS: DOCUSATE SODIUM 100 MG CAPSULE PO SCH (09:26)
[2017-10-21] MEDS: ENOXAPARIN SODIUM INJ 40 MG/0.4 ML DISP.SYRIN SUBCUT SCH (09:26)
[2017-10-21] MEDS ORDERED: ACETAMINOPHEN 325 MG TABLET PO PRN (13:33)
--- NOTE | 2017-10-21 13:38 | PDOC DISCHARGE SUMMARY ---
General - Admit/Disc Date/PCP Admission Date/Primary Care Provider: 10/19/17 16:46 Discharge Date: 10/21/17 - Discharge Diagnosis (1) Cellulitis and abscess of right leg Is this a current diagnosis for this admission?: Yes (2) Constipation Is this a current diagnosis for this admission?: Yes (3) Bursitis, prepatellar, right Is this a current diagnosis for this admission?: Yes (4) MRSA (methicillin resistant staph aureus) culture positive Is this a current diagnosis for this admission?: Yes - Additional Information Resuscitation Status: Full Code Discharge Diet: As Tolerated Prescriptions: Clindamycin HCl [Cleocin 150 mg Capsule] 450 mg PO Q6 8 Days #32 capsule Lactobacillus Acidophilus [Bacid 250 mg Tablet] 500 mg PO QPM 14 Days #14 tab Home Medications: Oxycodone HCl/Acetaminophen [Percocet 5-325 mg Tablet] 1 - 2 tab PO Q4H PRN #15 tablet 10/17/17 Acetaminophen [Tylenol 325 mg Tablet] 650 mg PO Q4HP PRN tablet 10/21/17 Clindamycin HCl [Cleocin 150 mg Capsule] 450 mg PO Q6 8 Days #32 capsule Lactobacillus Acidophilus [Bacid 250 mg Tablet] 500 mg PO QPM 14 Days #14 tab History of Present Illness History of Present Illness: 27 year old Arabic-speaking gentleman with no significant past medical history who presented to the Emergency department 2 days ago with cellulitis overlying his right knee. He was discharged with some oxycodone Keflex and Bactrim. He reported that it started with a small pustule that he squeezed and then the infection spread. He admited to some fevers nausea. He returned back to the emergency room due to worsening of pain swelling and redness over his right knee with difficulty ambulating. Incision and drainage of pus was done in the emergency room. He was started on IV clindamycin. CAT scan of the lower extremity shows superficial cellulitis of the lateral aspect of the knee and the soft tissues with fluid in the prepatellar bursa with surrounding inflammatory change in the adjacent fat. Trace suprapatellar knee joint space fluid was also seen. A consultation was requested for orthopedics, they evaluated the patient and did not feel he needed any further procedures. Wound cultures grew MRSA. He was given a prescription for Clindamycin. The patient is feeling much better. Pain swelling and erythema have improved significantly. He is stable for discharge home. Hospital Course Hospital Course: As above Physical Exam Vital Signs: Temp Pulse Resp BP Pulse Ox 98.2 F 78 16 124/74 100 10/21/17 11:46 10/21/17 11:46 10/21/17 11:46 10/21/17 11:46 10/21/17 11:46 Intake & Output 10/20/17 10/21/17 10/22/17 06:59 06:59 06:59 Intake Total 150 867 Output Total 450 Balance -300 867 Weight 76.3 kg 75.3 kg General appearance: PRESENT: no acute distress Head exam: PRESENT: normocephalic Eye exam: ABSENT: scleral icterus Ear exam: PRESENT: normal external ear exam Respiratory exam: PRESENT: symmetrical, unlabored Cardiovascular exam: PRESENT: RRR Neurological exam: PRESENT: alert, awake Results Laboratory Results: 10/20/17 05:34 10/20/17 05:34 Impressions: Lower Extremity CT 10/19/17 12:07 IMPRESSION: Superficial cellulitis throughout the lateral aspect of the left knee soft tissues. Fluid in the prepatellar bursa with surrounding inflammatory change in the adjacent fat Trace fluid in the Hoffa's fat pad region Trace suprapatellar knee joint space fluid. Qualifiers - * PATIENT BEING DISCHARGED WITH ANY OF THE FOLLOWING DIAGNOSIS: No Plan Time Spent: Less than 30 Minutes
[2017-10-21] MEDS ORDERED: ONDANSETRON 4 MG TAB.RAPDIS PO PRN (14:00)
[2017-10-21] MEDS ORDERED: ONDANSETRON HCL INJ/PF 4 MG/2 ML SDV IV PRN (14:00)
[2017-10-21 14:51] VITALS: BP 119/67
[2017-10-21] MEDS ORDERED: CLINDAMYCIN HCL 150 MG CAPSULE PO SCH (18:00)
== END 2017-10-21 16:00 | disposition home or self-care (01) | DRG 558 ==
LOC: ER 11:14 → EH 16:46 → 4W 22:58 → 4S 10-20 16:54
PROVIDERS: ADMIT Internal Medicine; ATTEND Internal Medicine
PROC: 0Y9F0ZX Drainage of Right Knee Region, Open Approach, Diagnostic (ICD-10-PCS; principal; 2017-10-19)
DX: M70.41 Prepatellar bursitis, right knee (principal); L03.115 Cellulitis of right lower limb; B95.62 Methicillin resistant Staphylococcus aureus infection as the cause of diseases classified elsewhere; K59.00 Constipation, unspecified
CPT/HCPCS: 36415; 80053; 81001; 83036; 83605; 83735; 84100; 84443; 85025; 85652; 86140; 87040; 87070; 87077; 87186; 87205; 93971; 96361; 96374; 96376; 99285; A6266; J1650; J3010; J3490; J7030

== ENCOUNTER 2018-12-04 06:07 | Emergency (ER) | payer SELFPAY ==
--- NOTE | 2018-12-04 08:23 | RADIOLOGY REPORT (SQ) ---
EXAM DESCRIPTION: FOOT LEFT COMPLETE COMPLETED DATE/TIME: 12/04/2018 8:06 am REASON FOR STUDY: Foot injury COMPARISON: None. NUMBER OF VIEWS: Three views. TECHNIQUE: AP, lateral and oblique radiographic images acquired of the left foot. LIMITATIONS: None. FINDINGS: MINERALIZATION: Normal. BONES: Small transverse fracture base of the 5th metatarsal. JOINTS: No effusions. SOFT TISSUES: No soft tissue swelling. No foreign body. OTHER: No other significant finding. IMPRESSION: 5th metatarsal fracture. TECHNICAL DOCUMENTATION: JOB ID: [id number] [employer]- All Rights Reserved Reading location - IP/workstation name: [email or web address]
--- NOTE | 2018-12-04 08:27 | ER Document Report ---
HPI - HPI Time Seen by Provider: 12/04/18 08:07 Pain Level: 5 Context: Patient is a 28-year-old male presents to the emergency department with a chief complaint of left foot pain. Patient states last night around 8 PM he was walking down the street when he stepped into a hole. Patient states he externally rotated his foot and heard a crack. Patient states he was wearing tennis shoes at the time. Patient states he has been unable to ambulate due to the pain. Patient reports pain to the dorsal aspect of the left foot. Patient has been using ice and elevating. Patient reports slight tingling to the foot. - CONSTITUTIONAL Constitutional: DENIES: Fever, Chills - EENT EENT: DENIES: Sore Throat, Ear Pain, Eye problems - NEURO Neurology: DENIES: Headache, Weakness, Vision blurred, Dizzinesss / Vertigo - CARDIOVASCULAR Cardiovascular: DENIES: Chest pain - RESPIRATORY Respiratory: DENIES: Trouble Breathing, Coughing - GASTROINTESTINAL Gastrointestinal: DENIES: Abdominal Pain, Black / Bloody Stools - URINARY Urinary: DENIES: Dysuria, Urgency, Frequency - MUSCULOSKELETAL Musculoskeletal: REPORTS: Extremity pain - left foot Past Medical History - General Information source: Patient - Social History Smoking Status: Never Smoker Chew tobacco use (# tins/day): No Frequency of alcohol use: None Drug Abuse: None Lives with: Spouse/Significant other Family History: Reviewed & Not Pertinent Patient has suicidal ideation: No Patient has homicidal ideation: No - Past Medical History Cardiac Medical History: Reports: None Pulmonary Medical History: Reports: None EENT Medical History: Reports: None Neurological Medical History: Reports: None Endocrine Medical History: Reports: None Renal/ Medical History: Reports: None. Denies: Hx Peritoneal Dialysis Malignancy Medical History: Reports None GI Medical History: Reports: None Musculoskeletal Medical History: Reports None Skin Medical History: Reports None Psychiatric Medical History: Reports: None Traumatic Medical History: Reports: None Infectious Medical History: Reports: None Surgical Hx: Negative Vertical Provider Document - CONSTITUTIONAL Agree With Documented VS: Yes Exam Limitations: No Limitations General Appearance: No Apparent Distress Notes: GENERAL: Well-appearing, well-nourished and in no acute distress. HEAD: Atraumatic, normocephalic. EYES: Pupils equal round and reactive to light, extraocular movements intact, sclera anicteric, conjunctiva are normal. ENT: TMs normal, nares patent, oropharynx clear without exudates. Moist mucous membranes. NECK: Normal range of motion, supple without lymphadenopathy or JVD. LUNGS: Breath sounds clear to auscultation bilaterally and equal. No wheezes rales or rhonchi. HEART: Regular rate and rhythm without murmurs, rubs or gallops. ABDOMEN: Soft, nontender, normoactive bowel sounds. No guarding, no rebound. No masses appreciated. BACK: No cervical, thoracic, lumbar midline tenderness. No saddle anesthesia, normal distal neurovascular exam. GENITOURINARY: Deferred. EXTREMITIES: Normal range of motion, + edema to the dorsal aspect of the left foot, slight ecchymosis without erythema or laceration. +2 strong dorsalis pedis and posterior tibial pulses. Patient has strong extension of the foot but weak flexion due to pain as reported. NEUROLOGICAL: Cranial nerves II through XII grossly intact. Normal speech. PSYCH: Normal mood, normal affect. SKIN: Warm, Dry, normal turgor, no rashes or lesions noted. - INFECTION CONTROL TRAVEL OUTSIDE OF THE [place] IN LAST 30 DAYS: No Course - Vital Signs Vital signs: Temp Pulse Resp BP Pulse Ox 98.6 F 63 14 133/90 H 99 12/04/18 06:19 12/04/18 06:19 12/04/18 06:19 12/04/18 06:19 12/04/18 06:19 - Diagnostic Test Radiology reviewed: Reports reviewed Radiology results interpreted by me: 12/04/18 08:25 Foot X-Ray 12/04/18 00:00 IMPRESSION: 5th metatarsal fracture. Discharge - Discharge Clinical Impression: Metatarsal bone fracture Qualifiers: Encounter type: initial encounter Metatarsal bone: fifth Fracture type: closed Fracture alignment: nondisplaced Laterality: left Qualified Code(s): S92.355A - Nondisplaced fracture of fifth metatarsal bone, left foot, initial encounter for closed fracture Condition: Stable Disposition: HOME, SELF-CARE Additional Instructions: Today you were seen in the emergency department after a foot injury. Your x-ray does show that you have a small fracture at the base of the left fifth metatarsal. You are being placed in a compression bandage called an Jeff wrap and a hard soled shoe. Please wear this for comfort until the swelling and pain have improved. You are also given crutches. Please use crutches over the next few days as he continued to have pain. Ice and elevate the left lower extremity. Use Tylenol or ibuprofen as needed for pain. Please return to the emergency department if you have any worsening pain, swelling, discoloration of the skin or any other concerning signs or symptoms. Hoy te vieron en el departamento de emergencias despus de indy lesin en el pie. Sims radiografa muestra que tiene indy pequea fractura en la base del trena metatarsiano cyndie. Usted est siendo colocado en indy venda de compresin llamada indy envoltura de Jeff y un zapato de suela dura. Por favor, use esto para sims comodidad hasta que la hinchazn y el dolor hayan kassi. Tamarmin te miguelina muletas. Por favor use muletas en los prximos hughes ya que l continu teniendo dolor. Hielo y elevar la extremidad inferior izquierda. Use Tylenol o ibuprofeno segn sea necesario para el dolor. Por favor regrese al departamento de emergencias si tiene un empeoramiento del dolor, hinchazn, decoloracin de la piel o cualquier otro signo o sntoma relacionado. Foot Fracture You have a fracture in one of the small bones of the foot. Some foot fractures are very serious, while others are no more serious than a sprain. This fracture should heal well, but requires protection for proper healing. Initially, you should elevate and ice pack the foot, and bear no weight on it. Usually, a cast or a walking boot will be required. Some milder foot fractures can be managed with temporary rest, then a firm shoe. Your physician has determined the seriousness of your foot fracture and has outlined the treatment plan for you. You should follow up as instructed to insure that the fracture heals without complications. Call the doctor or return at once if pain or swelling becomes severe, if a re-injury occurs, or if any part of the foot becomes numb. Forms: Return to Work Referrals: GULSHAN RAMIREZ MD [ACTIVE STAFF] - Follow up as needed ALYSIA MART DO [ACTIVE STAFF] - Follow up as needed
[2018-12-04] MEDS ORDERED: IBUPROFEN 800 MG TABLET PO ONE (08:29)
[2018-12-04 08:59] VITALS: BP 128/80
== END 2018-12-04 09:00 | disposition home or self-care (01) ==
LOC: ER 06:07
DX: S92.355A Nondisplaced fracture of fifth metatarsal bone, left foot, initial encounter for closed fracture (principal); M79.672 Pain in left foot; X50.9XXA Other and unspecified overexertion or strenuous movements or postures, initial encounter
CPT/HCPCS: 99283